=== PATIENT | female | born 1950 | race Caucasian/White ===

== ENCOUNTER 2018-08-18 15:03 | Emergency (ER) | payer OTHER ==
--- NOTE | 2018-08-18 15:42 | EDPHY ---
H & P Stated Complaint: R wrist injury Time Seen by Provider: 08/18/18 15:42 HPI/ROS: HPI CHIEF COMPLAINT: Right distal wrist pain. HISTORY OF PRESENT ILLNESS: 68-year-old female otherwise healthy, remote history of breast cancer, presents emergency room with right wrist pain. She slipped on wet mode she fell backwards with an outstretched hand. She now has distal radius pain. Denies any other areas of injury. She presents emergency room 6/10 right wrist pain. Distal radius. Denies chest pain or shortness of breath. Denies fever. Denies head strike or neck pain. Denies other extremity pain. The pain is located distal right wrist. Past Medical History: Breast cancer Past Surgical History: Denies recent surgical history, history of breast surgery Social History: Denies drugs alcohol tobacco. Family History: Noncontributory ROS REVIEW OF SYSTEMS: 10 Systems were reviewed and negative with the exception of the elements mentioned in the history of present illness. Exam Constitutional appears well nontoxic no acute distress triage nursing summary reviewed, vital signs reviewed, awake/alert. Eyes normal conjunctivae and sclera, EOMI, PERRLA. HENT normal inspection, atraumatic, moist mucus membranes, no epistaxis, neck supple/ no meningismus, no raccoon eyes. Respiratory clear to auscultation bilaterally, normal breath sounds, no respiratory distress, no wheezing. Cardiovascular rate normal, regular rhythm, no murmur, no edema, distal pulses normal. Gastrointestinal soft, non-tender, no rebound, no guarding, normal bowel sounds, no distension, no pulsatile mass. Genitourinary no CVA tenderness. Musculoskeletal right upper extremity: Closed Neurovascular intact good distal pulse, good cap refill, mild swelling to the distal radius, mild tender palpation right radius, no compartment syndrome. Sensation intact. No numbness or tingling. Good cap refill. no midline vertebral tenderness, full range of motion, no calf swelling, no tenderness of extremities, no meningismus, good pulses, neurovascularly intact. Skin pink, warm, & dry, no rash, skin atraumatic. Neurologic awake, alert and oriented x 3, AAOx3, moves all 4 extremities equally, motor intact, sensory intact, CN II-XII intact, normal cerebellar, normal vision, normal speech. Psychiatric normal mood/affect. Heme/Lymph/Immune no lymphadenopathy. Differential Diagnosis: Includes but is not limited to in a particular order right wrist sprain, right wrist fracture, radius fracture, ulnar fracture, scaphoid injury. Medical Decision Making: Plan for this patient x-ray right wrist. Ice pack. Patient took ibuprofen prior to arrival. Requesting something stronger. Re-evaluation: X-ray the right wrist reviewed.: This is a closed injury: Distal right radius fracture or impacted. No significant angulation. Image interpreted by myself. Patient be placed in a splint. Patient be placed in a sugar-tong splint for comfort. 2 doses of Percocet ordered for the patient. Recommend she follows up with Orthopedics. X-ray reviewed by Radiology shows distal radius fracture ulnar styloid avulsion fracture. Patient placed in a sugar-tong splint. Post splint placement she is neurovascularly intact. Post evaluation after splint was placed. She is neurovascular intact feels good. No significant pain. Is comfortable. No distress. Neurovascular intact good cap refill. Pain well controlled. Discussed return precautions with her Recommend close follow-up with Orthopedics. She is comfortable this plan. Take-home pack of Percocet, at her request. Source: Patient - Personal History Current Tetanus/Diphtheria Vaccine: Yes - Medical/Surgical History Hx Asthma: No Hx Chronic Respiratory Disease: No Hx Diabetes: No Hx Cardiac Disease: No Hx Renal Disease: No Hx Cirrhosis: No Hx Alcoholism: No Other PMH: Depression - Social History Smoking Status: Former smoker Constitutional: Initial Vital Signs Temperature (C) 37.1 C 08/18/18 15:29 Heart Rate 71 08/18/18 15:29 Respiratory Rate 18 08/18/18 15:29 Blood Pressure 170/100 H 08/18/18 15:29 O2 Sat (%) 98 08/18/18 15:29 O2 Delivery Mode Room Air Allergies/Adverse Reactions: No Known Allergies Allergy (Unverified 08/18/18 15:33) Home Medications: Medication Instructions Recorded NK [No Known Home Meds] 08/18/18 Medical Decision Making - Diagnostics Imaging Results: Imaging Impressions Wrist X-Ray 08/18/18 15:36 Impression: Transverse nondisplaced distal right radial metaphyseal fracture. Ulnar styloid avulsion. - Data Points Medications Given: Discontinued Medications Oxycodone/Acetaminophen (Percocet 5/325) 2 tab PO EDNOW ONE Stop: 08/18/18 15:59 Last Admin: 08/18/18 16:08 Dose: 2 tab Oxycodone/Acetaminophen (Percocet 5/325mg Prepack#4) 1 btl TAKEPARRIS SILVAW ONE Stop: 08/18/18 16:12 Last Admin: 08/18/18 16:14 Dose: 1 btl Departure - Departure Disposition: Home, Routine, Self-Care Clinical Impression: Wrist fracture Condition: Good Instructions: Oxycodone/Acetaminophen (By mouth), Wrist Fracture in Adults (ED) Additional Instructions: 1. Recommend elevation 2. Recommend ice 3. Anti-inflammatory pain medicine 4. Follow up with Orthopedics 5. Splint for comfort. 6. Return to the emergency room if you have worsening pain questions or concerns. Referrals: NONE *PRIMARY CARE P,. [Primary Care Provider] - As per Instructions Car Meier MD [Medical Doctor] - As per Instructions
[2018-08-18] MEDS ORDERED: OXYCODONE/APAP 5/325 TAB PO ONE (15:58)
[2018-08-18] MEDS ORDERED: OXYCODONE/APAP 5/325MG PREPACK#4 BTL TAKEHOME ONE (16:11)
[2018-08-18 16:19] VITALS: BP 146/74
== END 2018-08-18 16:18 | disposition home or self-care (01) ==
PROC: 2W3CX1Z Immobilization of Right Lower Arm using Splint (ICD-10-PCS; principal; 2018-08-18)
DX: S59.291A Other physeal fracture of lower end of radius, right arm, initial encounter for closed fracture (principal); S52.201A Unspecified fracture of shaft of right ulna, initial encounter for closed fracture; W19.XXXA Unspecified fall, initial encounter; Y92.9 Unspecified place or not applicable; Y99.9 Unspecified external cause status; Y93.9 Activity, unspecified; Z85.3 Personal history of malignant neoplasm of breast; Z87.891 Personal history of nicotine dependence
CPT/HCPCS: 29125; 73110; 99283; A4565; L3925